=== PATIENT | female | born 1970 | race African-American/Black ===

== ENCOUNTER 2017-03-16 10:54 | Day surgery (SDC) | payer MEDICARE, MEDICAID ==
[~2017-03-16] VITALS: Ht 154.9 cm; Wt 86.1 kg
[2017-03-16] VITALS (7 sets, daily range): BP systolic 88–108; BP diastolic 54–69; PULSE 74–104; TEMP 97.2–98.3
[~2017-03-16 10:54] MED LIST: K-DUR 2020 MEQ PO; LASIX 40MG TABL40 MG PO; LINZESS145CAP PO; MSIR30 MG PO; POTASSIUM75 MG PO; PRIL40 PO; SYNTHROID 0.0.025 MG PO; VITAMIN D 1001000 IU PO; XANAX 1MG1 MG PO
[2017-03-16] MEDS ORDERED: VITAMINC1000TA PO (12:35)
[2017-03-16] MEDS ORDERED: VITAMIN D32000 IU PO (12:35)
[2017-03-16] MEDS ORDERED: SYNTHROID0.1 MG/TAB PO (12:35)
[2017-03-16] MEDS ORDERED: FLONASEALLERGY NS (12:36)
[2017-03-16] MEDS ORDERED: AMOXICILLIN 50500 MG PO (12:37)
[2017-03-16] MEDS ORDERED: PERIDEX (CHLOR480 ML MM (16:25)
[2017-03-16] MEDS ORDERED: NORCO 325 MG-51 TAB PO (16:32)
[2017-03-16] MEDS ORDERED: MOTRIN 800800 MG/TAB PO (16:33)
== END 2017-03-16 18:15 | disposition home or self-care (01) ==
LOC: SDCO 10:54
DX: K02.9 Dental caries, unspecified (principal); M79.7 Fibromyalgia; G89.28 Other chronic postprocedural pain; M06.9 Rheumatoid arthritis, unspecified; E03.9 Hypothyroidism, unspecified; J42 Unspecified chronic bronchitis; G47.33 Obstructive sleep apnea (adult) (pediatric); F41.9 Anxiety disorder, unspecified; E87.6 Hypokalemia
CPT/HCPCS: J0295; J0690; J1100; J1170; J1885; J2405; J2704; J2710; J2765; J3010; J7120